=== PATIENT | female | born 1965 | race Two or more races ===

== ENCOUNTER 2024-06-24 12:52 | Emergency (ER) | payer OTHER ==
[~2024-06-24] VITALS: Ht 162.6 cm; Wt 70.8 kg
[2024-06-24] MEDS ORDERED: LOSARTAN POTASS50 MG PO (15:50)
[2024-06-24] MEDS ORDERED: hydrALAZINE HCL 20 MG VIAL IV ONE (16:00)
== END 2024-06-24 16:43 | disposition home or self-care (01) ==
LOC: ER 12:54
DX: I10 Essential (primary) hypertension (principal); R51.9 Headache, unspecified